=== PATIENT | female | born 1995 | race American Indian/Alaskan Native ===

== ENCOUNTER 2017-02-28 03:02 | Inpatient (IN) | payer MEDICAID ==
[2017-02-28] MEDS ORDERED: Nalbuphine 10 MG/1 ML Vial IM PRN (07:20)
[2017-02-28] MEDS ORDERED: Penicillin G Potassium 5 MILLUNITS in Sodium Chloride 0.9% 100 ML IV ONE (07:20)
[2017-02-28] MEDS ORDERED: Lactated Ringers 500 ML IV ONE (07:20)
[2017-02-28] MEDS ORDERED: Misoprostol 400 MCG (4 X 100 MCG TAB) RECTAL PRN (07:20)
[2017-02-28] MEDS ORDERED: Sodium Chloride 0.9% 10 ML Syringe FLUSH PRN (07:20)
[2017-02-28] MEDS ORDERED: Carboprost Tromethamine 250 MCG/1 ML Amp IM PRN (07:20)
[2017-02-28] MEDS ORDERED: Ondansetron 4 MG/2 ML SDV IV PRN (07:20)
[2017-02-28] MEDS ORDERED: Methylergonovine 0.2 MG/1 ML Amp IM PRN (07:20)
[2017-02-28] MEDS ORDERED: Lidocaine 1% 30 ML SDV INJECT PRN (07:20)
[2017-02-28] MEDS: Lactated Ringers 1,000 ML IV SCH ×2 (08:20→16:13)
--- NOTE | 2017-02-28 09:13 | HP ---
CHIEF COMPLAINT: "I am constantine". HISTORY OF PRESENT ILLNESS: Ms. Wilhelm is a 21-year-old 2 para 1-0-0-1 female at 41-1/7th weeks' gestation by a 39-1/7th weeks' ultrasound done at [place]. She reports to Labor and Delivery with increasing force and frequency of contractions. They started off at a half an hour to 45 minutes apart and now they are closer. She denies any vaginal bleeding or leakage of fluid. No nausea, vomiting, or diarrhea. No fever or chills. No hematochezia, hematemesis, or hematuria. No dysuria, frequency, or urgency with urination. No leg pain, leg edema, severe abdominal or back pain. PAST MEDICAL HISTORY: She denies any history of anemia, asthma, diabetes, cancer, hypertension, heart disease, seizure disorder, thromboembolic disorder, blood transfusions, breast lesions, or asthma. FAMILY HISTORY: Her mother in November of 2016 for end-stage renal disease, positive history of diabetes, coronary artery disease, hypertension, and cancer in her great grandmother. SOCIAL HISTORY: She denies any tobacco use or alcohol use. She states that she has used marijuana, the last time was in November. She did have a positive cannabis on a recent drug screen on 02/20/2017. She lives in [place] with her aunt. The father of the baby is involved, but she has not been able to come to visits except for one visit with Dr. Perea on 02/22/2017 because of getting a ride issues. OBSTETRICAL HISTORY: 08/22/2015, delivery of a viable male infant, weighing 7 pounds 6 ounces via vacuum-assisted vaginal delivery with scores of 4 at 1 minute and 9 at [address] Jomar Garcia. ALLERGIES: No known drug allergies. MEDICATIONS: 1. vitamins. 2. Iron. INDUSTRIAL MAINTENANCE REPAIRER HISTORY: She does have history of left genital labial abscess in the past and positive for chlamydia with her last which was treated. Chlamydia at earlier in the at [place] was negative. PAST SURGICAL HISTORY: None. REVIEW OF SYSTEMS: All pertinent positive and negative review of systems per HPI. All other systems were reviewed and negative. The 10-point review of systems was discussed with the patient, she has no issues. She denies any chest pain, shortness of breath, headaches, blurry vision, or epigastric pain. She does have some discomfort in her abdomen with contractions. LABORATORY DATA: Blood type is A positive. Antibody screen negative. Hepatitis C negative. Rubella immune. Hepatitis B surface antigen negative. HIV nonreactive. GC chlamydia negative. Group B strep was negative. OBJECTIVE: General: A well-developed, well-nourished female, in no acute distress. Vital Signs: Stable. Afebrile. HEENT: PERRLA. Neck: Supple without adenopathy. No thyromegaly. Lungs: Clear to auscultation. No wheezing, rhonchi, or rales noted. Cardiovascular: Regular rate and rhythm without murmurs. Abdomen: Gravid. Nontender. heart tones in the 130s to 140s. Contractions every 45 minutes apart. Back: No CVA tenderness. : Cervix is 1.5 cm dilated, 60% effaced, -2 station, firm, midposition. Vertex presentation. Extremities: No edema, erythema, or tenderness noted. ASSESSMENT: 1. A 21-year-old 2 para 1-0-0-1 female. 2. Early prodrome labor. 3. Minimal care. 4. Dating by a late third trimester ultrasound. 5. Group B Streptococcus negative. 6. Positive for cannabis on urine drug screen. PLAN: 1. Admit for observation. 2. Dr. Quintero will evaluate the patient and decide whether to keep her and induce her versus sending her home and bring her back for induction of labor. 3. All questions answered. [facility] /[id number]
[2017-02-28] MEDS ORDERED: Oxytocin/Normal Saline 30 UNIT/500 ML BAG IV SCH (12:30)
--- NOTE | 2017-02-28 13:34 | PN ---
DATE: 02/28/2017 SUBJECTIVE: The patient continues to have regular contractions reporting they have increased in intensity and remained as frequent as they were before. She is willing to proceed with artificial rupture of membranes for continued progress of her labor and would like an intrathecal when appropriate. OBJECTIVE: Vital Signs: Have remained stable. Pelvic: Cervix is 5 cm dilated, 90% effaced, and the bag of water is intact. Ruptured with amniotomy help without difficulties and clear fluid returned. Station is approximately -2. ASSESSMENT: Unchanged with a 41 and 1/7th weeks gestation based on last menstrual period which was less than 1 week different from her 22-week ultrasound. She is in active labor. Has a history of marijuana abuse. She is group B Strep positive and receiving antibiotics. She also had insufficient care with only 2 care visits as an outpatient, 1 as an inpatient. PLAN: Continue routine course and anticipate vaginal delivery. We will continue to reassess as needed and change the plan as needed. [facility] /[id number]
[2017-02-28] MEDS: Penicillin G Potassium 3 MILLUNITS in Sodium Chloride 0.9% 100 ML IV SCH ×3 (13:50→22:41)
[2017-02-28] MEDS ORDERED: fentaNYL 100 MCG/2 ML SDV ONE (15:39)
--- NOTE | 2017-02-28 16:21 | PCM.SN ---
- Free Text/Narrative Note: Called to provide labor analgesia for this patient via intrathecal. After review of patient history, VS, etc, and consent signed, proceeded. With patient in sitting position, sterile prep/drape. Skin wheal at L3-4 with 1% lidocaine. LP X 1 at L3-4 with 24g pencan spinal needle. Positive, free flowing, clear CSF. No heme, no paresthesia. Then 6mg mpf, hyperbaric spinal marcaine, 20mcg sufenta, 30mcg fentanyl, 0.4ml of preservative free normal saline, plus epi wash given intrathecally. Pt then to supine. Maternal SBP and FHT's remained stable after, and patient reported pain relief with subsequent contractions.
[2017-02-28] MEDS ORDERED: fentaNYL 100 MCG/2 ML SDV ITHECAL ONE (17:03)
[2017-02-28] MEDS ORDERED: Benzocaine/Menthol 20%-0.5% Spray 56 GM Canister TOP PRN (19:35)
[2017-02-28] MEDS ORDERED: Simethicone 80 MG Tab.Chew PO PRN (19:35)
[2017-02-28] MEDS: Acetaminophen 325 MG Tab PO PRN (20:05)
[2017-02-28] MEDS: Docusate Sodium 100 MG Cap PO PRN (20:05)
[2017-02-28] MEDS: Ibuprofen 800 MG Tab PO PRN (20:06)
[2017-03-01] MEDS: Penicillin G Potassium 3 MILLUNITS in Sodium Chloride 0.9% 100 ML IV SCH (02:46)
[2017-03-01] MEDS: Ibuprofen 800 MG Tab PO PRN ×3 (04:36→23:24)
[2017-03-01] MEDS: Acetaminophen 325 MG Tab PO PRN ×2 (04:37→20:27)
--- NOTE | 2017-03-01 07:35 | DEL ---
DATE: 02/28/2017 PREPROCEDURE DIAGNOSES: 1. A 41 and 1/7th weeks gestation based on last menstrual period and found this 22-week ultrasound. 2. 2, para 1-0-0-1. 3. History of marijuana abuse with positive drug screens in November and February. 4. Blood type A positive. Rubella immune. Group B strep positive, treated during labor. 5. History of bacterial vaginosis 1 week ago. 6. Insufficient care. 7. Anemia of with a hemoglobin of 11.3. 8. History of methamphetamine on UDS in October. POSTPROCEDURE DIAGNOSES: 1. A 41 and 1/7th weeks gestation based on last menstrual and found this 22- week ultrasound. 2. 2, para 1-0-0-1. 3. History of marijuana abuse with positive drug screens in November and February. 4. Blood type A positive. Rubella immune. Group B strep positive, treated during labor. 5. History of bacterial vaginosis 1 week ago. 6. Insufficient care. 7. Status post uncomplicated vaginal delivery. 8. History of methamphetamine on UDS in October. 9. Superficial skin tear anterior and posterior with need for one small stitch for hemostasis. BRIEF HISTORY: A 21-year-old with the above-listed diagnoses, presented to the hospital in early stages of labor and she was monitored for several hours and was showing cervical change, admitted to the hospital. Artificial rupture of membranes carried out with return of clear fluid and she was 5 cm dilated. She continued to progress nicely. Intrathecal was provided for pain management and labor slowed and then picked up again and was augmented with 2 milliunits of Pitocin. She then later on went onto complete stage I labor was about 16 hours and she only needed to push for about 20 minutes despite poor quality of pushes before resulting in successful delivery. PROCEDURE IN DETAIL: With the patient in dorsal lithotomy position, she delivered a viable male over intact perineum in the OA position. Infant was delivered and dried. Excessive secretions were audible, so he was placed head and face in a downward position. Bulb suction carried out. He was then placed on mother's abdomen. Delayed cord clamping performed and then three- vessel umbilical cord was doubly clamped and cut. Placenta was then delivered by gentle cord traction and concomitant uterine massage intact after about 4-5 minutes. Uterus was then massaged and blood flow well-controlled. Labia inspected and she had some superficial skin tears, one of which on the labia on the right side. There was a small amount of bleeding that would not stop with just application of pressure, so a single stitch of 4-0 Vicryl placed in figure- of-eight fashion and excellent hemostasis achieved. No additional repair was needed. No local anesthetic was required. The patient tolerated procedure well. ESTIMATED BLOOD LOSS: 300 mL. DISPOSITION: Mother and baby to stay in the room together at this time. [facility] /[id number] MTDD
[2017-03-01] MEDS: Prenatal Multivitamin with Calcium/Folic Acid/Iron Tab PO SCH (08:59)
[2017-03-01] MEDS: Docusate Sodium 100 MG Cap PO PRN ×2 (08:59→20:27)
[2017-03-01] MEDS: Ferrous Sulfate 325 MG Tab PO SCH (08:59)
--- NOTE | 2017-03-01 10:04 | PCM.POSTAN ---
POST ANESTHESIA ASSESSMENT - MENTAL STATUS Mental Status: alert - VITAL SIGNS Pulse Rate: 68 SaO2: 100 Resp Rate: 20 Blood Pressure: 123/67 Temperature: 36.2 C - RESPIRATORY Respiratory Status: respiratory rate WNL - CARDIOVASCULAR CV Status: pulse rate WNL - GASTROINTESTINAL GI Status: no symptoms - POST OP HYDRATION Hydration Status: adequate & stable - OBSERVATIONS Free Text/Narrative:: Pt without c/o. No PDPH, no PONV, no persistant paresthesias, etc. No c/o pain. no post anesthesia complications noted.
--- NOTE | 2017-03-02 07:59 | PN ---
DATE: 03/01/2017 TIME: 12 p.m. SUBJECTIVE: day #1, doing well, ambulating, tolerating regular diet, voiding without difficulties. She has not yet had a bowel movement. Bleeding has been minimal. Bonding well with her child and bottle feeding. 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 Her urine drug screen resulted positive for marijuana on admission. The patient would like to follow up in [place] when the time comes because of transportation reasons, and we would certainly arrange that for her. OBJECTIVE: Vital Signs: Temperature is 97.7; pulse 67; blood pressure 145/76, recheck of 139/69; respiratory rate of 16; and O2 saturation is 98% on room air. HEENT: Unremarkable. Heart: Regular without obvious murmur. Lungs: Clear to auscultation bilaterally. Abdomen: Soft and nontender. Fundus is firm and below the umbilicus. Extremities: Full range of motion. No edema. LABORATORY DATA: Hemoglobin is down to 9.1 from an admission of 11.3 and platelets are stable at 215. ASSESSMENT: 1. 2, now para 2-0-0-2, status post uncomplicated vaginal delivery. 2. History of methamphetamine use this as well as marijuana abuse. 3. Minimal care. 4. Group B Streptococcus positive, treated in labor. PLAN: Anticipate continued normal care and discharge home tomorrow as long as all continues to go well. The patient's questions have been answered. [facility] /[id number]
[2017-03-02 08:08] VITALS: BP 144/70
[2017-03-02] MEDS ORDERED: Diphtheria,Pertussis(Acell),Tetanus Vaccine 0.5 ML SDV IM ONE (08:48)
[2017-03-02] MEDS: Docusate Sodium 100 MG Cap PO PRN (09:42)
[2017-03-02] MEDS: Ferrous Sulfate 325 MG Tab PO SCH (09:42)
[2017-03-02] MEDS: Ibuprofen 800 MG Tab PO PRN (09:42)
[2017-03-02] MEDS: Prenatal Multivitamin with Calcium/Folic Acid/Iron Tab PO SCH (09:42)
--- NOTE | 2017-03-04 00:34 | DISCH ---
ADMISSION DIAGNOSES: 1. A 41 and 7th weeks' gestation based on last menstrual period and within 5 days of her 22-week ultrasound. 2, para 1-0-0-1. 2. THC abuse with positive drug screens in November and February. 3. Blood type A positive, rubella immune, group B Strep positive. 4. Bacterial vaginosis treated 1 week ago. 5. Insufficient care. 6. Anemia of . DISCHARGE DIAGNOSES: 1. A 41 and 7th weeks' gestation based on last menstrual period and within 5 days of her 22-week ultrasound. 2, now para 2-0-0-2. 2. THC abuse with positive drug screens in November and February. 3. Blood type A positive, rubella immune, group B Strep positive. 4. Bacterial vaginosis treated 1 week ago. 5. Insufficient care. 6. Anemia of . 7. Anemia of acute blood. 8. Status post spontaneous vaginal delivery. 9. Repair of non hemostatic skin tear, left labia. BRIEF HISTORY: A 21-year-old female, admitted to the hospital in early stages of labor. She was allowed to progress on her own until she was about 5 cm dilated, and intrathecal provided and artificial rupture of membranes performed. She was then augmented with some Pitocin, since the intrathecal slowed her labor slightly, she progressed very nicely after that. Total stage I about 16 hours, stage II 20 minutes, stage III about 4 minutes. See delivery note for full details. There were no complications or problems with that. HOSPITAL COURSE: Hospital course has been good. She has been ambulating, tolerating regular diet, voiding, not yet had a bowel movement. No symptoms of preeclampsia. No fevers, chills, diarrhea, or constipation. No foul-smelling drainage or discharge. Bleeding has been [id number]. Bonding with her baby has been appropriate. PHYSICAL EXAMINATION: Vital Signs: Discharge condition good. Temperature is 98.5, pulse 72, blood pressure 122/65, respiratory rate of 16, and O2 saturations 98% on room air. Heart: Regular without obvious murmur. Lungs: Clear to auscultation bilaterally. Abdomen: Soft and nontender. Fundus is firm and below the umbilicus. Extremities: No edema, erythema, or tenderness noted. LABORATORY DATA: Admission hemoglobin was 11.3, discharge hemoglobin of 9.1. Urine drug screen was negative on admission. DISPOSITION: Home with family. MEDICATIONS: 1. Ibuprofen 600 mg every 6 hours as needed for pain. 2. Tylenol 650 mg every 6 hours as needed for pain. 3. Iron 325 mg twice daily. 4. Colace 100 mg twice daily. FOLLOWUP: She will need an appointment in 6 weeks for exam and plans to do that in [place] with Joan Kervinchad. INSTRUCTIONS: Routine post vaginal delivery instructions provided including to return if she has any fever, chills, nausea, vomiting, diarrhea, increasing pelvic pain, or other concerns. Her questions were answered. [facility] /[id number] [place]
== END 2017-03-02 17:00 | disposition home or self-care (01) | DRG 775 ==
LOC: DL.OBCHECK 03:02 → UNDOADMOB 07:15 → DL.OB 07:15 → OBSVTOIN 19:09 → DL.OB 19:09
PROVIDERS: ADMIT Obstetrics & Gynecology; ATTEND Obstetrics & Gynecology
PROC: 10E0XZZ Delivery of Products of Conception, External Approach (ICD-10-PCS; principal; 2017-02-28)
PROC: 0UQMXZZ Repair Vulva, External Approach (ICD-10-PCS; 2017-02-28)
PROC: 00HU33Z Insertion of Infusion Device into Spinal Canal, Percutaneous Approach (ICD-10-PCS; 2017-02-28)
PROC: 3E0R3CZ (ICD-10-PCS; 2017-02-28)
DX: O48.0 Post-term pregnancy (principal); O99.324 Drug use complicating childbirth; O99.824 Streptococcus B carrier state complicating childbirth; O70.0 First degree perineal laceration during delivery; Z3A.41 41 weeks gestation of pregnancy; Z37.0 Single live birth
CPT/HCPCS: 01967; 36415; 80305; 85027; 86850; 86900; 86901; 90715; A9270-GY; J2405; J2540; J2590; J3010; J7050; J7120

== ENCOUNTER 2020-02-03 15:06 | Emergency (ER) | payer MEDICAID ==
[2020-02-03] MEDS ORDERED: Cyclobenzaprine 10 MG Tab PO ONE ×2 (15:07→16:15)
[2020-02-03] MEDS ORDERED: Ketorolac 10 MG Tab PO ONE (15:07)
[2020-02-03 15:41] VITALS: BP 115/79; PULSE 94
[2020-02-03] MEDS ORDERED: Ketorolac 30 MG/ML SDV IM ONE (16:15)
[2020-02-03] MEDS ORDERED: Cyclobenzaprine 10 MG Tab ONE (16:20)
[2020-02-03] MEDS ORDERED: Ketorolac 10 MG Tab ONE (16:20)
--- NOTE | 2020-02-03 16:23 | EDM.PDOC ---
Scribed by Clair Irby 02/03/20 3991 for Kwasi Copeland PA ED HPI GENERAL MEDICAL PROBLEM - General Chief Complaint: Back Pain or Injury Stated Complaint: BACK INJURY LUMP ON WRIST Time Seen by Provider: 02/03/20 15:27 Source of Information: Reports: Patient, RN, RN Notes Reviewed History Limitations: Reports: No Limitations - History of Present Illness INITIAL COMMENTS - FREE TEXT/NARRATIVE: Patient is a 24-year-old female who presents with back pain between shoulders and to right lower back. She took Tylenol 3 tablets (500mg). It started at 3 or 3:30 yesterday. 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 The patient reports increased pain since that time. The patient reports she took a Suboxone yesterday before work. The patient reports she is supposed to be at work new. Onset Date: 02/02/20 Duration: Getting Worse Location: Reports: Back Quality: Reports: Ache Severity: Moderate Improves with: Reports: None Worsens with: Reports: None Associated Symptoms: Reports: No Other Symptoms - Related Data Allergies Allergy/AdvReac Type Severity Reaction Status Date / Time No Known Allergies Allergy Verified 06/04/18 23:38 Home Meds: Home Meds Acetaminophen [Tylenol] 650 mg PO Q4H PRN #30 tablet 03/02/17 [Rx] Ferrous Sulfate 325 mg PO BID #60 tablet 03/02/17 [Rx] Ibuprofen [IJD: Ibuprofen] 600 mg PO Q6H PRN #60 tablet 03/02/17 [Rx] Past Medical History - Past Health History Medical/Surgical History: Denies Medical/Surgical History HEENT History: Reports: Impaired Vision Cardiovascular History: Reports: None Respiratory History: Reports: None Gastrointestinal History: Reports: GERD Genitourinary History: Reports: None EXHIBIT CARPENTER History: Reports: Musculoskeletal History: Reports: None Neurological History: Reports: None Psychiatric History: Reports: Depression, Suicidal Ideation Other Psychiatric History: denies this visit, noted cutting alvarado Endocrine/Metabolic History: Reports: None Hematologic History: Reports: Anemia Immunologic History: Reports: None Oncologic (Cancer) History: Reports: None Dermatologic History: Reports: None - Infectious Disease History Infectious Disease History: Reports: None Other Infectious Disease History: denies - Past Surgical History Head Surgeries/Procedures: Reports: None Social & Family History - Family History Family Medical History: Noncontributory HEENT: Reports: None Cardiac: Reports: None Respiratory: Reports: None GI: Reports: None : Reports: None OBGYN: Reports: None Musculoskeletal: Reports: None Neurological: Reports: None Psychiatric: Reports: None Endocrine/Metabolic: Reports: None Hematologic: Reports: None Immunologic: Reports: None Dermatologic: Reports: None Oncologic: Reports: None - Caffeine Use Caffeine Use: Reports: Coffee, Energy Drinks, Soda, Tea ED ROS GENERAL - Review of Systems Review Of Systems: Comprehensive ROS is negative, except as noted in HPI. ED EXAM,LOWER BACK PAIN/INJURY - Physical Exam Exam: See Below Exam Limited By: No Limitations General Appearance: Alert, WD/WN, No Apparent Distress Eye Exam: Bilateral Eye: EOMI, Normal Inspection, PERRL Ears: Normal External Exam, Normal Canal, Hearing Grossly Normal, Normal TMs Nose: Normal Inspection, Normal Mucosa, No Blood Throat/Mouth: Normal Inspection, Normal Lips, Normal Teeth, Normal Gums, Normal Oropharynx, Normal Voice, No Airway Compromise Head: Atraumatic, Normocephalic Neck: Normal Inspection, Supple, Non-Tender, Full Range of Motion Respiratory/Chest: No Respiratory Distress, Lungs Clear, Normal Breath Sounds, No Accessory Muscle Use, Chest Non-Tender Cardiovascular: Normal Peripheral Pulses, Regular Rate, Rhythm, No Edema, No Gallop, No JVD, No Murmur, No Rub GI/Abdominal: Normal Bowel Sounds, Soft, Non-Tender, No Organomegaly, No Distention, No Abnormal Bruit, No Mass (Female) Exam: Deferred Rectal (Female) Exam: Deferred Back Exam: Other (diffuse back pain and bilateral posterior shoulders, left lower back. ) Extremities: Normal Inspection, Normal Range of Motion, Non-Tender, No Pedal Edema, Normal Capillary Refill Neurological: Alert, Normal Mood/Affect, Normal Dorsiflexion, CN II-XII Intact, Normal Plantar Flexion, Normal Gait, Normal Reflexes, No Motor/Sensory Deficits, Oriented x 3 Psychiatric: Normal Affect, Normal Mood Skin Exam: Warm, Dry, Intact, Normal Color, No Rash Lymphatic: No Adenopathy Course - Vital Signs Last Recorded V/S: Last Vital Signs Temp 37.5 C 02/03/20 15:31 Pulse 94 02/03/20 15:31 Resp 18 02/03/20 15:31 BP 115/79 02/03/20 15:31 Pulse Ox 100 02/03/20 15:31 - Orders/Labs/Meds Labs: Laboratory Tests 02/03/20 02/03/20 02/03/20 Range/Units 15:51 15:51 15:51 Urine Color Yellow (YELLOW) Urine Appearance Clear (CLEAR) Urine pH 7.5 (5.0-9.0) Ur Specific [place] 1.025 (1.005-1.030) Urine Protein Negative (NEGATIVE) Urine Glucose (UA) Negative (NEGATIVE) Urine Ketones Negative (NEGATIVE) Urine Occult Blood Negative (NEGATIVE) Urine Nitrite Negative (NEGATIVE) Urine Bilirubin Negative (NEGATIVE) Urine Urobilinogen 0.2 (0.2-1.0) mg/dL Ur Leukocyte Esterase Negative (NEGATIVE) Urine HCG, Qual Negative Urine Opiates Screen Negative (NEGATIVE) Ur Oxycodone Screen Negative (NEGATIVE) Urine Methadone Screen Negative (NEGATIVE) Ur Barbiturates Screen Negative (NEGATIVE) U Tricyclic Antidepress Negative (NEGATIVE) Ur Phencyclidine Scrn Negative (NEGATIVE) Ur Amphetamine Screen Negative (NEGATIVE) U Methamphetamines Scrn Negative (NEGATIVE) Urine MDMA Screen Negative (NEGATIVE) U Benzodiazepines Scrn Negative (NEGATIVE) Urine Cocaine Screen Negative (NEGATIVE) U Marijuana (THC) Screen Positive H (NEGATIVE) Meds: Medications Discontinued Medications Generic Name Dose Route Start Last Admin Trade Name Freq PRN Reason Stop Dose Admin Cyclobenzaprine HCl 10 mg 02/03/20 16:15 Flexeril PO 02/03/20 16:16 ONETIME ONE Ketorolac Tromethamine 30 mg 02/03/20 16:15 Toradol IM 02/03/20 16:16 ONETIME ONE Departure - Departure Time of Disposition: 16:19 Disposition: Home, Self-Care 01 Condition: Fair Clinical Impression: Back strain Qualifiers: Encounter type: initial encounter Qualified Code(s): S39.012A - Strain of muscle, fascia and tendon of lower back, initial encounter - Discharge Information *PRESCRIPTION DRUG MONITORING PROGRAM REVIEWED*: Not Applicable *COPY OF PRESCRIPTION DRUG MONITORING REPORT IN PATIENT AJE: Not Applicable Instructions: Muscle Strain, [id number] Forms: ED Department Discharge Care Plan Goals: The patient was advised of the examination results during the visit. The patient was given an injection of Toradol (10 mg) and an oral dose of Flexeril (10 mg) while in the ED. The patient was discharged with Toradol (10 mg) #1 to take eery 6 hours and Flexeril (10 mg) #1 to take every 6 hours as needed and scripts for Toradol (10 mg) #16 to take 1 by mouth every 6 hours and Flexeril (10 mg) #10 to take 1 by mouth at bedtime as needed. If the patient has any additional symptoms or concerns, the patient should either return to the emergency department or visit her primary care facility. Sepsis Event Note (ED) - Focused Exam Vital Signs: Vital Signs Temp Pulse Resp BP Pulse Ox 02/03/20 15:31 37.5 C 94 18 115/79 100 I have read and agree with the documentation that has been completed regarding this visit. By signing this record, I attest that the documentation was completed in my physical presence and is an accurate record of the encounter.
== END 2020-02-03 16:30 | disposition home or self-care (01) ==
LOC: DL.ED 15:06
DX: S39.012A Strain of muscle, fascia and tendon of lower back, initial encounter (principal); D64.9 Anemia, unspecified; Z79.899 Other long term (current) drug therapy; X50.0XXA Overexertion from strenuous movement or load, initial encounter; Y92.89 Other specified places as the place of occurrence of the external cause; Y99.0 Civilian activity done for income or pay
CPT/HCPCS: 80305; 81003; 81025; 96372; 99283; A9270; J1885

== ENCOUNTER 2020-05-24 18:50 | Emergency (ER) | payer MEDICAID ==
[2020-05-24 18:59] VITALS: BP 131/98; PULSE 110
[2020-05-24] MEDS ORDERED: Cephalexin 500 MG Cap PO ONE (19:20)
[2020-05-24] MEDS ORDERED: Sulfamethoxazole/Trimethoprim 800-160 MG Tab PO ONE (19:20)
--- NOTE | 2020-05-24 19:20 | EDM.PDOC ---
ED HPI GENERAL MEDICAL PROBLEM - General Chief Complaint: Skin Complaint Stated Complaint: RIGHT ANKLE, 2 BUMPS POSSIBLE INFECTION Time Seen by Provider: 05/24/20 19:00 Source of Information: Reports: Patient History Limitations: Reports: No Limitations - History of Present Illness INITIAL COMMENTS - FREE TEXT/NARRATIVE: c/o pain and redness to right lower leg, started with 2 sores last night, worse this afternoon. Hx skin infections in past. Denies hx IVDU. Denies fever or chills. Right Lower Leg Pain Score (Numeric/FACES): 6 - Related Data Allergies Allergy/AdvReac Type Severity Reaction Status Date / Time No Known Allergies Allergy Verified 05/24/20 19:06 Home Meds: Home Meds . 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 ATTENDANT History: Reports: Musculoskeletal History: Reports: None Neurological History: Reports: None Psychiatric History: Reports: Depression, Suicidal Ideation Other Psychiatric History: denies this visit, noted cutting alvarado Endocrine/Metabolic History: Reports: None Hematologic History: Reports: Anemia Immunologic History: Reports: None Oncologic (Cancer) History: Reports: None Dermatologic History: Reports: None - Infectious Disease History Infectious Disease History: Reports: None Other Infectious Disease History: denies - Past Surgical History Head Surgeries/Procedures: Reports: None Social & Family History - Family History Family Medical History: Noncontributory HEENT: Reports: None Cardiac: Reports: None Respiratory: Reports: None GI: Reports: None : Reports: None OBGYN: Reports: None Musculoskeletal: Reports: None Neurological: Reports: None Psychiatric: Reports: None Endocrine/Metabolic: Reports: None Hematologic: Reports: None Immunologic: Reports: None Dermatologic: Reports: None Oncologic: Reports: None - Tobacco Use Smoking Status *Q: Never Smoker - Caffeine Use Caffeine Use: Reports: None - Recreational Drug Use Recreational Drug Use: Yes Recreational Drug Type: Reports: Marijuana/Hashish ED ROS GENERAL - Review of Systems Review Of Systems: Comprehensive ROS is negative, except as noted in HPI. ED EXAM, SKIN/RASH Exam: See Below Exam Limited By: No Limitations General Appearance: Alert, No Apparent Distress Eye Exam: Bilateral Eye: EOMI Ears: Normal External Exam Nose: Normal Inspection Throat/Mouth: Normal Inspection Head: Atraumatic, Normocephalic Neck: Normal Inspection Respiratory/Chest: No Respiratory Distress, Lungs Clear, Normal Breath Sounds Cardiovascular: Regular Rate, Rhythm, No Edema, No Murmur GI/Abdominal: Soft Extremities: Increased Warmth, Redness (right lower anterior lower leg) Neurological: Alert, Oriented Location, Skin: Lower Extremity, Right Characteristics: Erythematous Associated features: Tenderness, Crusting Course - Vital Signs Last Recorded V/S: Last Vital Signs Temp 99.4 F 05/24/20 18:55 Pulse 110 H 05/24/20 18:55 Resp 16 05/24/20 18:55 BP 131/98 H 05/24/20 18:55 Pulse Ox 100 05/24/20 18:55 - Orders/Labs/Meds Orders: Active Orders 24 hr Category Date Time Status CULTURE BLOOD [BC] Stat Lab 05/24/20 19:20 Received Labs: Laboratory Tests 05/24/20 05/24/20 Range/Units 19:20 19:20 WBC 9.6 (5.0-10.0) 10^3/uL RBC 4.34 (4.2-5.4) 10^6/uL Hgb 12.3 D (12.0-16.0) g/dL Hct 37.1 (37.0-47.0) % MCV 85.5 (80-100) fL MCH 28.3 (27.0-34.0) pg MCHC 33.2 (33.0-35.0) g/dL Plt Count 238 (150-450) 10^3/uL Neut % (Auto) 75.0 (42.2-75.2) % Lymph % (Auto) 18.0 L (20.5-50.1) % Brooks % (Auto) 6.3 (2-8) % Eos % (Auto) 0.5 L (1.0-3.0) % Baso % (Auto) 0.2 (0.0-1.0) % Sodium 136 (136-145) mmol/L Potassium 3.9 (3.5-5.1) mmol/L Chloride 99 (98-107) mmol/L Carbon Dioxide 28 (21-32) mmol/L Anion Gap 12.9 (7-13) mEq/L BUN 12 (7-18) mg/dL Creatinine 0.63 (0.55-1.02) mg/dL Est Cr Clr Drug Dosing 130.01 mL/min Estimated GFR (MDRD) > 60 BUN/Creatinine Ratio 19.0 (No establ ref range) Glucose 92 (74-99) mg/dL Calcium 8.5 (8.5-10.1) mg/dL Total Bilirubin 0.2 (0.2-1.0) mg/dL AST 9 L (15-37) U/L ALT 23 (14-59) U/L Alkaline Phosphatase 72 (46-116) U/L Total Protein 7.6 (6.4-8.2) g/dL Albumin 4.0 (3.4-5.0) g/dL Globulin 3.6 Albumin/Globulin Ratio 1.1 Meds: Medications Discontinued Medications Generic Name Dose Route Start Last Admin Trade Name Freq PRN Reason Stop Dose Admin Cephalexin 500 mg 05/24/20 19:20 05/24/20 19:53 Keflex PO 05/24/20 19:21 500 mg ONETIME ONE Administration Ibuprofen 600 mg 05/24/20 19:21 05/24/20 19:53 Motrin PO 05/24/20 19:22 600 mg ONETIME ONE Administration Trimethoprim/Sulfamethoxazole 1 tab 05/24/20 19:20 05/24/20 19:54 Septra Ds PO 05/24/20 19:21 1 tab ONETIME ONE Administration Departure - Departure Time of Disposition: 19:51 Disposition: Home, Self-Care 01 Condition: Good Clinical Impression: Cellulitis Qualifiers: Site of cellulitis: extremity Site of cellulitis of extremity: lower extremity Laterality: right Qualified Code(s): L03.115 - Cellulitis of right lower limb - Discharge Information *PRESCRIPTION DRUG MONITORING PROGRAM REVIEWED*: No *COPY OF PRESCRIPTION DRUG MONITORING REPORT IN PATIENT JAE: No Instructions: Cellulitis, Adult Forms: ED Department Discharge Additional Instructions: ED HPI GENERAL MEDICAL PROBLEM - General Chief Complaint: Skin Complaint Stated Complaint: RIGHT ANKLE, 2 BUMPS POSSIBLE INFECTION Source of Information: Reports: Patient History Limitations: Reports: No Limitations - History of Present Illness INITIAL COMMENTS - FREE TEXT/NARRATIVE: c/o pain and redness to right lower leg, started with 2 sores last night, worse this afternoon. Hx skin infections in past. Denies hx IVDU. Denies fever or chills. Right Lower Leg Pain Score (Numeric/FACES): 6 - Related Data Allergies Allergy/AdvReac Type Severity Reaction Status Date / Time No Known Allergies Allergy Verified 05/24/20 19:06 Home Meds: Home Meds . 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 ATTENDANT History: Reports: Musculoskeletal History: Reports: None Neurological History: Reports: None Psychiatric History: Reports: Depression, Suicidal Ideation Other Psychiatric History: denies this visit, noted cutting alvarado Endocrine/Metabolic History: Reports: None Hematologic History: Reports: Anemia Immunologic History: Reports: None Oncologic (Cancer) History: Reports: None Dermatologic History: Reports: None - Infectious Disease History Infectious Disease History: Reports: None Other Infectious Disease History: denies - Past Surgical History Head Surgeries/Procedures: Reports: None Social & Family History - Family History Family Medical History: Noncontributory HEENT: Reports: None Cardiac: Reports: None Respiratory: Reports: None GI: Reports: None : Reports: None OBGYN: Reports: None Musculoskeletal: Reports: None Neurological: Reports: None Psychiatric: Reports: None Endocrine/Metabolic: Reports: None Hematologic: Reports: None Immunologic: Reports: None Dermatologic: Reports: None Oncologic: Reports: None - Tobacco Use Smoking Status *Q: Never Smoker - Caffeine Use Caffeine Use: Reports: None - Recreational Drug Use Recreational Drug Use: Yes Recreational Drug Type: Reports: Marijuana/Hashish ED ROS GENERAL - Review of Systems Review Of Systems: Comprehensive ROS is negative, except as noted in HPI. ED EXAM, SKIN/RASH Exam: See Below Exam Limited By: No Limitations General Appearance: Alert, No Apparent Distress Eye Exam: Bilateral Eye: EOMI Ears: Normal External Exam Nose: Normal Inspection Throat/Mouth: Normal Inspection Head: Atraumatic, Normocephalic Neck: Normal Inspection Respiratory/Chest: No Respiratory Distress, Lungs Clear, Normal Breath Sounds Cardiovascular: Regular Rate, Rhythm, No Edema, No Murmur GI/Abdominal: Soft Extremities: Increased Warmth, Redness (right lower anterior lower leg) Neurological: Alert, Oriented Location, Skin: Lower Extremity, Right Characteristics: Erythematous Associated features: Tenderness, Crusting Course - Vital Signs Last Recorded V/S: Last Vital Signs Temp 99.4 F 05/24/20 18:55 Pulse 110 H 05/24/20 18:55 Resp 16 05/24/20 18:55 BP 131/98 H 05/24/20 18:55 Pulse Ox 100 05/24/20 18:55 - Orders/Labs/Meds Orders: Active Orders 24 hr Category Date Time Status CULTURE BLOOD [BC] Stat Lab 05/24/20 19:20 Received Labs: Laboratory Tests 05/24/20 05/24/20 Range/Units 19:20 19:20 WBC 9.6 (5.0-10.0) 10^3/uL RBC 4.34 (4.2-5.4) 10^6/uL Hgb 12.3 D (12.0-16.0) g/dL Hct 37.1 (37.0-47.0) % MCV 85.5 (80-100) fL MCH 28.3 (27.0-34.0) pg MCHC 33.2 (33.0-35.0) g/dL Plt Count 238 (150-450) 10^3/uL Neut % (Auto) 75.0 (42.2-75.2) % Lymph % (Auto) 18.0 L (20.5-50.1) % Brooks % (Auto) 6.3 (2-8) % Eos % (Auto) 0.5 L (1.0-3.0) % Baso % (Auto) 0.2 (0.0-1.0) % Sodium 136 (136-145) mmol/L Potassium 3.9 (3.5-5.1) mmol/L Chloride 99 (98-107) mmol/L Carbon Dioxide 28 (21-32) mmol/L Anion Gap 12.9 (7-13) mEq/L BUN 12 (7-18) mg/dL Creatinine 0.63 (0.55-1.02) mg/dL Est Cr Clr Drug Dosing 130.01 mL/min Estimated GFR (MDRD) > 60 BUN/Creatinine Ratio 19.0 (No establ ref range) Glucose 92 (74-99) mg/dL Calcium 8.5 (8.5-10.1) mg/dL Total Bilirubin 0.2 (0.2-1.0) mg/dL AST 9 L (15-37) U/L ALT 23 (14-59) U/L Alkaline Phosphatase 72 (46-116) U/L Total Protein 7.6 (6.4-8.2) g/dL Albumin 4.0 (3.4-5.0) g/dL Globulin 3.6 Albumin/Globulin Ratio 1.1 Meds: Medications Discontinued Medications Generic Name Dose Route Start Last Admin Trade Name Freq PRN Reason Stop Dose Admin Cephalexin 500 mg 05/24/20 19:20 Keflex PO 05/24/20 19:21 ONETIME ONE Ibuprofen 600 mg 05/24/20 19:21 Motrin PO 05/24/20 19:22 ONETIME ONE Trimethoprim/Sulfamethoxazole 1 tab 05/24/20 19:20 Septra Ds PO 05/24/20 19:21 ONETIME ONE Departure - Departure Time of Disposition: 19:51 Disposition: Home, Self-Care 01 Condition: Good Clinical Impression: Cellulitis Qualifiers: Site of cellulitis: extremity Site of cellulitis of extremity: lower extremity Laterality: right Qualified Code(s): L03.115 - Cellulitis of right lower limb - Discharge Information *PRESCRIPTION DRUG MONITORING PROGRAM REVIEWED*: No *COPY OF PRESCRIPTION DRUG MONITORING REPORT IN PATIENT JAE: No Instructions: Cellulitis, Adult Forms: ED Department Discharge Additional Instructions: warm pack to area monitor follow up if increased redness fever/ chills and increased swelling alternate tylenol 650mg and ibuprofen 600mg every 4 hours as needed for discomfort keflex 500mg one three times daily for one week bactrim DS one twice daily for one week clinic recheck next week Sepsis Event Note (ED) - Evaluation Sepsis Screening Result: No Definite Risk - Focused Exam Vital Signs: Vital Signs Temp Pulse Resp BP Pulse Ox 05/24/20 18:55 99.4 F 110 H 16 131/98 H 100 - My Orders Last 24 Hours: My Active Orders 05/24/20 19:20 CULTURE BLOOD [BC] Stat - Assessment/Plan Last 24 Hours: My Active Orders 05/24/20 19:20 CULTURE BLOOD [BC] Stat ED HPI GENERAL MEDICAL PROBLEM - General Chief Complaint: Skin Complaint Stated Complaint: RIGHT ANKLE, 2 BUMPS POSSIBLE INFECTION Source of Information: Reports: Patient History Limitations: Reports: No Limitations - History of Present Illness INITIAL COMMENTS - FREE TEXT/NARRATIVE: c/o pain and redness to right lower leg, started with 2 sores last night, worse this afternoon. Hx skin infections in past. Denies hx IVDU. Denies fever or chills. Right Lower Leg Pain Score (Numeric/FACES): 6 - Related Data Allergies Allergy/AdvReac Type Severity Reaction Status Date / Time No Known Allergies Allergy Verified 05/24/20 19:06 Home Meds: Home Meds . 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 ATTENDANT History: Reports: Musculoskeletal History: Reports: None Neurological History: Reports: None Psychiatric History: Reports: Depression, Suicidal Ideation Other Psychiatric History: denies this visit, noted cutting alvarado Endocrine/Metabolic History: Reports: None Hematologic History: Reports: Anemia Immunologic History: Reports: None Oncologic (Cancer) History: Reports: None Dermatologic History: Reports: None - Infectious Disease History Infectious Disease History: Reports: None Other Infectious Disease History: denies - Past Surgical History Head Surgeries/Procedures: Reports: None Social & Family History - Family History Family Medical History: Noncontributory HEENT: Reports: None Cardiac: Reports: None Respiratory: Reports: None GI: Reports: None : Reports: None OBGYN: Reports: None Musculoskeletal: Reports: None Neurological: Reports: None Psychiatric: Reports: None Endocrine/Metabolic: Reports: None Hematologic: Reports: None Immunologic: Reports: None Dermatologic: Reports: None Oncologic: Reports: None - Tobacco Use Smoking Status *Q: Never Smoker - Caffeine Use Caffeine Use: Reports: None - Recreational Drug Use Recreational Drug Use: Yes Recreational Drug Type: Reports: Marijuana/Hashish ED ROS GENERAL - Review of Systems Review Of Systems: Comprehensive ROS is negative, except as noted in HPI. ED EXAM, SKIN/RASH Exam: See Below Exam Limited By: No Limitations General Appearance: Alert, No Apparent Distress Eye Exam: Bilateral Eye: EOMI Ears: Normal External Exam Nose: Normal Inspection Throat/Mouth: Normal Inspection Head: Atraumatic, Normocephalic Neck: Normal Inspection Respiratory/Chest: No Respiratory Distress, Lungs Clear, Normal Breath Sounds Cardiovascular: Regular Rate, Rhythm, No Edema, No Murmur GI/Abdominal: Soft Extremities: Increased Warmth, Redness (right lower anterior lower leg) Neurological: Alert, Oriented Location, Skin: Lower Extremity, Right Characteristics: Erythematous Associated features: Tenderness, Crusting Course - Vital Signs Last Recorded V/S: Last Vital Signs Temp 99.4 F 05/24/20 18:55 Pulse 110 H 05/24/20 18:55 Resp 16 05/24/20 18:55 BP 131/98 H 05/24/20 18:55 Pulse Ox 100 05/24/20 18:55 - Orders/Labs/Meds Orders: Active Orders 24 hr Category Date Time Status CULTURE BLOOD [BC] Stat Lab 05/24/20 19:20 Received Labs: Laboratory Tests 05/24/20 05/24/20 Range/Units 19:20 19:20 WBC 9.6 (5.0-10.0) 10^3/uL RBC 4.34 (4.2-5.4) 10^6/uL Hgb 12.3 D (12.0-16.0) g/dL Hct 37.1 (37.0-47.0) % MCV 85.5 (80-100) fL MCH 28.3 (27.0-34.0) pg MCHC 33.2 (33.0-35.0) g/dL Plt Count 238 (150-450) 10^3/uL Neut % (Auto) 75.0 (42.2-75.2) % Lymph % (Auto) 18.0 L (20.5-50.1) % Brooks % (Auto) 6.3 (2-8) % Eos % (Auto) 0.5 L (1.0-3.0) % Baso % (Auto) 0.2 (0.0-1.0) % Sodium 136 (136-145) mmol/L Potassium 3.9 (3.5-5.1) mmol/L Chloride 99 (98-107) mmol/L Carbon Dioxide 28 (21-32) mmol/L Anion Gap 12.9 (7-13) mEq/L BUN 12 (7-18) mg/dL Creatinine 0.63 (0.55-1.02) mg/dL Est Cr Clr Drug Dosing 130.01 mL/min Estimated GFR (MDRD) > 60 BUN/Creatinine Ratio 19.0 (No establ ref range) Glucose 92 (74-99) mg/dL Calcium 8.5 (8.5-10.1) mg/dL Total Bilirubin 0.2 (0.2-1.0) mg/dL AST 9 L (15-37) U/L ALT 23 (14-59) U/L Alkaline Phosphatase 72 (46-116) U/L Total Protein 7.6 (6.4-8.2) g/dL Albumin 4.0 (3.4-5.0) g/dL Globulin 3.6 Albumin/Globulin Ratio 1.1 Meds: Medications Discontinued Medications Generic Name Dose Route Start Last Admin Trade Name Freq PRN Reason Stop Dose Admin Cephalexin 500 mg 05/24/20 19:20 Keflex PO 05/24/20 19:21 ONETIME ONE Ibuprofen 600 mg 05/24/20 19:21 Motrin PO 05/24/20 19:22 ONETIME ONE Trimethoprim/Sulfamethoxazole 1 tab 05/24/20 19:20 Septra Ds PO 05/24/20 19:21 ONETIME ONE Departure - Departure Time of Disposition: 19:51 Disposition: Home, Self-Care 01 Condition: Good Clinical Impression: Cellulitis Qualifiers: Site of cellulitis: extremity Site of cellulitis of extremity: lower extremity Laterality: right Qualified Code(s): L03.115 - Cellulitis of right lower limb - Discharge Information *PRESCRIPTION DRUG MONITORING PROGRAM REVIEWED*: No *COPY OF PRESCRIPTION DRUG MONITORING REPORT IN PATIENT JAE: No Instructions: Cellulitis, Adult Forms: ED Department Discharge Additional Instructions: warm pack to area monitor follow up if increased redness fever/ chills and increased swelling alternate tylenol 650mg and ibuprofen 600mg every 4 hours as needed for discomfort keflex 500mg one three times daily for one week bactrim DS one twice daily for one week clinic recheck next week Sepsis Event Note (ED) - Evaluation Sepsis Screening Result: No Definite Risk - Focused Exam Vital Signs: Vital Signs Temp Pulse Resp BP Pulse Ox 05/24/20 18:55 99.4 F 110 H 16 131/98 H 100 - My Orders Last 24 Hours: My Active Orders 05/24/20 19:20 CULTURE BLOOD [BC] Stat - Assessment/Plan Last 24 Hours: My Active Orders 05/24/20 19:20 CULTURE BLOOD [BC] Stat ED HPI GENERAL MEDICAL PROBLEM - General Chief Complaint: Skin Complaint Stated Complaint: RIGHT ANKLE, 2 BUMPS POSSIBLE INFECTION Source of Information: Reports: Patient History Limitations: Reports: No Limitations - History of Present Illness INITIAL COMMENTS - FREE TEXT/NARRATIVE: c/o pain and redness to right lower leg, started with 2 sores last night, worse this afternoon. Hx skin infections in past. Denies hx IVDU. Denies fever or chills. Right Lower Leg Pain Score (Numeric/FACES): 6 - Related Data Allergies Allergy/AdvReac Type Severity Reaction Status Date / Time No Known Allergies Allergy Verified 05/24/20 19:06 Home Meds: Home Meds . 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 ATTENDANT History: Reports: Musculoskeletal History: Reports: None Neurological History: Reports: None Psychiatric History: Reports: Depression, Suicidal Ideation Other Psychiatric History: denies this visit, noted cutting alvarado Endocrine/Metabolic History: Reports: None Hematologic History: Reports: Anemia Immunologic History: Reports: None Oncologic (Cancer) History: Reports: None Dermatologic History: Reports: None - Infectious Disease History Infectious Disease History: Reports: None Other Infectious Disease History: denies - Past Surgical History Head Surgeries/Procedures: Reports: None Social & Family History - Family History Family Medical History: Noncontributory HEENT: Reports: None Cardiac: Reports: None Respiratory: Reports: None GI: Reports: None : Reports: None OBGYN: Reports: None Musculoskeletal: Reports: None Neurological: Reports: None Psychiatric: Reports: None Endocrine/Metabolic: Reports: None Hematologic: Reports: None Immunologic: Reports: None Dermatologic: Reports: None Oncologic: Reports: None - Tobacco Use Smoking Status *Q: Never Smoker - Caffeine Use Caffeine Use: Reports: None - Recreational Drug Use Recreational Drug Use: Yes Recreational Drug Type: Reports: Marijuana/Hashish ED ROS GENERAL - Review of Systems Review Of Systems: Comprehensive ROS is negative, except as noted in HPI. ED EXAM, SKIN/RASH Exam: See Below Exam Limited By: No Limitations General Appearance: Alert, No Apparent Distress Eye Exam: Bilateral Eye: EOMI Ears: Normal External Exam Nose: Normal Inspection Throat/Mouth: Normal Inspection Head: Atraumatic, Normocephalic Neck: Normal Inspection Respiratory/Chest: No Respiratory Distress, Lungs Clear, Normal Breath Sounds Cardiovascular: Regular Rate, Rhythm, No Edema, No Murmur GI/Abdominal: Soft Extremities: Increased Warmth, Redness (right lower anterior lower leg) Neurological: Alert, Oriented Location, Skin: Lower Extremity, Right Characteristics: Erythematous Associated features: Tenderness, Crusting Course - Vital Signs Last Recorded V/S: Last Vital Signs Temp 99.4 F 05/24/20 18:55 Pulse 110 H 05/24/20 18:55 Resp 16 05/24/20 18:55 BP 131/98 H 05/24/20 18:55 Pulse Ox 100 05/24/20 18:55 - Orders/Labs/Meds Orders: Active Orders 24 hr Category Date Time Status CULTURE BLOOD [BC] Stat Lab 05/24/20 19:20 Received Labs: Laboratory Tests 05/24/20 05/24/20 Range/Units 19:20 19:20 WBC 9.6 (5.0-10.0) 10^3/uL RBC 4.34 (4.2-5.4) 10^6/uL Hgb 12.3 D (12.0-16.0) g/dL Hct 37.1 (37.0-47.0) % MCV 85.5 (80-100) fL MCH 28.3 (27.0-34.0) pg MCHC 33.2 (33.0-35.0) g/dL Plt Count 238 (150-450) 10^3/uL Neut % (Auto) 75.0 (42.2-75.2) % Lymph % (Auto) 18.0 L (20.5-50.1) % Brooks % (Auto) 6.3 (2-8) % Eos % (Auto) 0.5 L (1.0-3.0) % Baso % (Auto) 0.2 (0.0-1.0) % Sodium 136 (136-145) mmol/L Potassium 3.9 (3.5-5.1) mmol/L Chloride 99 (98-107) mmol/L Carbon Dioxide 28 (21-32) mmol/L Anion Gap 12.9 (7-13) mEq/L BUN 12 (7-18) mg/dL Creatinine 0.63 (0.55-1.02) mg/dL Est Cr Clr Drug Dosing 130.01 mL/min Estimated GFR (MDRD) > 60 BUN/Creatinine Ratio 19.0 (No establ ref range) Glucose 92 (74-99) mg/dL Calcium 8.5 (8.5-10.1) mg/dL Total Bilirubin 0.2 (0.2-1.0) mg/dL AST 9 L (15-37) U/L ALT 23 (14-59) U/L Alkaline Phosphatase 72 (46-116) U/L Total Protein 7.6 (6.4-8.2) g/dL Albumin 4.0 (3.4-5.0) g/dL Globulin 3.6 Albumin/Globulin Ratio 1.1 Meds: Medications Discontinued Medications Generic Name Dose Route Start Last Admin Trade Name Corwinq PRN Reason Stop Dose Admin Cephalexin 500 mg 05/24/20 19:20 Keflex PO 05/24/20 19:21 ONETIME ONE Ibuprofen 600 mg 05/24/20 19:21 Motrin PO 05/24/20 19:22 ONETIME ONE Trimethoprim/Sulfamethoxazole 1 tab 05/24/20 19:20 Septra Ds PO 05/24/20 19:21 ONETIME ONE Departure - Departure Time of Disposition: 19:51 Disposition: Home, Self-Care 01 Condition: Good Clinical Impression: Cellulitis Qualifiers: Site of cellulitis: extremity Site of cellulitis of extremity: lower extremity Laterality: right Qualified Code(s): L03.115 - Cellulitis of right lower limb - Discharge Information *PRESCRIPTION DRUG MONITORING PROGRAM REVIEWED*: No *COPY OF PRESCRIPTION DRUG MONITORING REPORT IN PATIENT JAE: No Instructions: Cellulitis, Adult Forms: ED Department Discharge Additional Instructions: warm pack to area monitor follow up if increased redness fever/ chills and increased swelling alternate tylenol 650mg and ibuprofen 600mg every 4 hours as needed for discomfort keflex 500mg one three times daily for one week bactrim DS one twice daily for one week clinic recheck next week Sepsis Event Note (ED) - Evaluation Sepsis Screening Result: No Definite Risk - Focused Exam Vital Signs: Vital Signs Temp Pulse Resp BP Pulse Ox 05/24/20 18:55 99.4 F 110 H 16 131/98 H 100 - My Orders Last 24 Hours: My Active Orders 05/24/20 19:20 CULTURE BLOOD [BC] Stat - Assessment/Plan Last 24 Hours: My Active Orders 05/24/20 19:20 CULTURE BLOOD [BC] Stat warm pack to area monitor follow up if increased redness fever/ chills and increased swelling alternate tylenol 650mg and ibuprofen 600mg every 4 hours as needed for discomfort keflex 500mg one three times daily for one week bactrim DS one twice daily for one week clinic recheck next week Sepsis Event Note (ED) - Evaluation Sepsis Screening Result: No Definite Risk - Focused Exam Vital Signs: Vital Signs Temp Pulse Resp BP Pulse Ox 05/24/20 18:55 99.4 F 110 H 16 131/98 H 100 - My Orders Last 24 Hours: My Active Orders 05/24/20 19:20 CULTURE BLOOD [BC] Stat - Assessment/Plan Last 24 Hours: My Active Orders 05/24/20 19:20 CULTURE BLOOD [BC] Stat
[2020-05-24] MEDS ORDERED: Ibuprofen 600 MG Tab PO ONE (19:21)
[2020-05-24 19:48] LABS: ANION GAP 12.9 mEq/L (7-13); CHLORIDE,CL 99 mmol/L (98-107); SODIUM,NA 136 mmol/L (136-145)
== END 2020-05-24 20:00 | disposition home or self-care (01) ==
LOC: DL.ED 18:50
DX: L03.115 Cellulitis of right lower limb (principal)
CPT/HCPCS: 36415; 80053; 85025; 87040; 99283; A9270

== ENCOUNTER 2020-06-04 19:24 | Emergency (ER) | payer MEDICAID ==
[2020-06-04 19:41] VITALS: BP 130/84; PULSE 88
[2020-06-04] MEDS ORDERED: Ondansetron 4 MG/2 ML SDV ONE (19:59)
[2020-06-04] MEDS ORDERED: Ondansetron 4 MG/2 ML SDV IVPUSH ONE (19:59)
[2020-06-04] MEDS ORDERED: Acetaminophen 325 MG Tab PO ONE (19:59)
[2020-06-04] MEDS ORDERED: Sodium Chloride 0.9% 1,000 ML ONE (19:59)
[2020-06-04] MEDS ORDERED: Sodium Chloride 0.9% 1,000 ML IV ONE (19:59)
[2020-06-04] MEDS ORDERED: Acetaminophen 325 MG Tab ONE (19:59)
--- NOTE | 2020-06-04 20:10 | EDM.PDOC ---
ED HPI GENERAL MEDICAL PROBLEM - General Chief Complaint: Gastrointestinal Problem Stated Complaint: FLU SYMPTOMS Time Seen by Provider: 06/04/20 19:40 Source of Information: Reports: Patient History Limitations: Reports: No Limitations - History of Present Illness INITIAL COMMENTS - FREE TEXT/NARRATIVE: ED with c/o 3 day headache, fever and chills today, body aches, cough non productive this am emesis x 1 and diarrhea x 3. COVID + 8/6. Recent cellulitis right lower leg, completed antibiotic, still some redness and drainage. - Related Data Allergies Allergy/AdvReac Type Severity Reaction Status Date / Time No Known Allergies Allergy Verified 05/24/20 19:06 Home Meds: Home Meds . 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: Musculoskeletal History: Reports: None Neurological History: Reports: None Psychiatric History: Reports: Depression, Suicidal Ideation Other Psychiatric History: denies this visit, noted cutting alvarado Endocrine/Metabolic History: Reports: None Hematologic History: Reports: Anemia Immunologic History: Reports: None Oncologic (Cancer) History: Reports: None Dermatologic History: Reports: Cellulitis - Infectious Disease History Infectious Disease History: Reports: Other (See Below) Other Infectious Disease History: covid 03/19/20 - Past Surgical History Head Surgeries/Procedures: Reports: None Social & Family History - Family History Family Medical History: Noncontributory HEENT: Reports: None Cardiac: Reports: None Respiratory: Reports: None GI: Reports: None : Reports: None OBGYN: Reports: None Musculoskeletal: Reports: None Neurological: Reports: None Psychiatric: Reports: None Endocrine/Metabolic: Reports: None Hematologic: Reports: None Immunologic: Reports: None Dermatologic: Reports: None Oncologic: Reports: None - Tobacco Use Tobacco Use Status *Q: Never Tobacco User Second Hand Smoke Exposure: No - Caffeine Use Caffeine Use: Reports: Energy Drinks, Soda - Recreational Drug Use Recreational Drug Use: Yes Recreational Drug Type: Reports: Marijuana/Hashish Recreational Drug Use Frequency: Daily ED ROS GENERAL - Review of Systems Review Of Systems: Comprehensive ROS is negative, except as noted in HPI. ED EXAM, GI/ABD - Physical Exam Exam: See Below Exam Limited By: No Limitations General Appearance: Alert, Mild Distress Eyes: Bilateral: EOMI Ears: Normal External Exam Nose: Normal Inspection Throat/Mouth: Normal Inspection Head: Atraumatic, Normocephalic Neck: Normal Inspection, Full Range of Motion Respiratory/Chest: No Respiratory Distress, Lungs Clear, Normal Breath Sounds Cardiovascular: Normal Peripheral Pulses, Regular Rate, Rhythm GI/Abdominal Exam: Normal Bowel Sounds, Soft, Non-Tender Back Exam: Normal Inspection, Full Range of Motion Extremities: Normal Range of Motion Neurological: Alert, Oriented Psychiatric: Normal Affect, Normal Mood Skin Exam: Warm, Dry, Wound/Incision (2 lesions right lower kinney, upper 2cm errythematous circular lesion with punctate center. lower 1cm slight pink dry. closed.) Course - Vital Signs Last Recorded V/S: Last Vital Signs Temp 98 F 06/04/20 19:35 Pulse 88 06/04/20 19:35 Resp 18 06/04/20 19:35 BP 130/84 06/04/20 19:35 Pulse Ox 100 06/04/20 19:35 - Orders/Labs/Meds Orders: Active Orders 24 hr Category Date Time Status CULTURE WOUND [RM] Stat Lab 06/04/20 19:42 Received Isolation [COMM] Routine Oth 06/04/20 20:02 Active Labs: Laboratory Tests 06/04/20 06/04/20 06/04/20 Range/Units 19:42 19:54 19:54 WBC 6.3 (5.0-10.0) 10^3/uL RBC 4.48 (4.2-5.4) 10^6/uL Hgb 12.7 (12.0-16.0) g/dL Hct 38.9 (37.0-47.0) % MCV 86.8 (80-100) fL MCH 28.3 (27.0-34.0) pg MCHC 32.6 L (33.0-35.0) g/dL Plt Count 327 D (150-450) 10^3/uL Neut % (Auto) 47.8 (42.2-75.2) % Lymph % (Auto) 44.7 (20.5-50.1) % Stanton % (Auto) 6.3 (2-8) % Eos % (Auto) 1.0 (1.0-3.0) % Baso % (Auto) 0.2 (0.0-1.0) % Sodium 137 (136-145) mmol/L Potassium 4.0 (3.5-5.1) mmol/L Chloride 99 (98-107) mmol/L Carbon Dioxide 28 (21-32) mmol/L Anion Gap 14.0 H (7-13) mEq/L BUN 9 (7-18) mg/dL Creatinine 0.63 (0.55-1.02) mg/dL Est Cr Clr Drug Dosing 124.97 mL/min Estimated GFR (MDRD) > 60 BUN/Creatinine Ratio 14.3 (No establ ref range) Glucose 90 (74-99) mg/dL Lactic Acid (0.4-2.0) mmol/L Calcium 9.2 (8.5-10.1) mg/dL Total Bilirubin 0.2 (0.2-1.0) mg/dL AST 8 L (15-37) U/L ALT 21 (14-59) U/L Alkaline Phosphatase 80 (46-116) U/L Total Protein 8.3 H (6.4-8.2) g/dL Albumin 4.3 (3.4-5.0) g/dL Globulin 4.0 Albumin/Globulin Ratio 1.1 Amylase 60 (25-115) U/L Lipase 97 (73-393) U/L Urine Color (YELLOW) Urine Appearance (CLEAR) Urine pH (5.0-9.0) Ur Specific [place] (1.005-1.030) Urine Protein (NEGATIVE) Urine Glucose (UA) (NEGATIVE) Urine Ketones (NEGATIVE) Urine Occult Blood (NEGATIVE) Urine Nitrite (NEGATIVE) Urine Bilirubin (NEGATIVE) Urine Urobilinogen (0.2-1.0) mg/dL Ur Leukocyte Esterase (NEGATIVE) Urine RBC /HPF Urine WBC (0-5/HPF) /HPF Ur Epithelial Cells (NOT SEEN) /HPF Amorphous Sediment (NOT SEEN) /HPF Urine Bacteria (0-FEW/HPF) /HPF Urine Mucus (NOT SEEN) /LPF Urine HCG, Qual Urine Opiates Screen (NEGATIVE) Ur Oxycodone Screen (NEGATIVE) Urine Methadone Screen (NEGATIVE) Ur Barbiturates Screen (NEGATIVE) U Tricyclic Antidepress (NEGATIVE) Ur Phencyclidine Scrn (NEGATIVE) Ur Amphetamine Screen (NEGATIVE) U Methamphetamines Scrn (NEGATIVE) Urine MDMA Screen (NEGATIVE) U Benzodiazepines Scrn (NEGATIVE) Urine Cocaine Screen (NEGATIVE) U Marijuana (THC) Screen (NEGATIVE) SARS CoV-2 RNA Rapid TONY Negative (NEGATIVE) 06/04/20 06/04/20 06/04/20 Range/Units 19:54 20:43 20:43 WBC (5.0-10.0) 10^3/uL RBC (4.2-5.4) 10^6/uL Hgb (12.0-16.0) g/dL Hct (37.0-47.0) % MCV (80-100) fL MCH (27.0-34.0) pg MCHC (33.0-35.0) g/dL Plt Count (150-450) 10^3/uL Neut % (Auto) (42.2-75.2) % Lymph % (Auto) (20.5-50.1) % Stanton % (Auto) (2-8) % Eos % (Auto) (1.0-3.0) % Baso % (Auto) (0.0-1.0) % Sodium (136-145) mmol/L Potassium (3.5-5.1) mmol/L Chloride (98-107) mmol/L Carbon Dioxide (21-32) mmol/L Anion Gap (7-13) mEq/L BUN (7-18) mg/dL Creatinine (0.55-1.02) mg/dL Est Cr Clr Drug Dosing mL/min Estimated GFR (MDRD) BUN/Creatinine Ratio (No establ ref range) Glucose (74-99) mg/dL Lactic Acid 1.3 (0.4-2.0) mmol/L Calcium (8.5-10.1) mg/dL Total Bilirubin (0.2-1.0) mg/dL AST (15-37) U/L ALT (14-59) U/L Alkaline Phosphatase (46-116) U/L Total Protein (6.4-8.2) g/dL Albumin (3.4-5.0) g/dL Globulin Albumin/Globulin Ratio Amylase (25-115) U/L Lipase (73-393) U/L Urine Color Yellow (YELLOW) Urine Appearance Clear (CLEAR) Urine pH 5.5 (5.0-9.0) Ur Specific [place] 1.025 (1.005-1.030) Urine Protein Negative (NEGATIVE) Urine Glucose (UA) Negative (NEGATIVE) Urine Ketones Negative (NEGATIVE) Urine Occult Blood Small H (NEGATIVE) Urine Nitrite Negative (NEGATIVE) Urine Bilirubin Negative (NEGATIVE) Urine Urobilinogen 0.2 (0.2-1.0) mg/dL Ur Leukocyte Esterase Negative (NEGATIVE) Urine RBC 5-10 H /HPF Urine WBC 0-5 (0-5/HPF) /HPF Ur Epithelial Cells Rare (NOT SEEN) /HPF Amorphous Sediment Few (NOT SEEN) /HPF Urine Bacteria Rare (0-FEW/HPF) /HPF Urine Mucus Few H (NOT SEEN) /LPF Urine HCG, Qual Negative Urine Opiates Screen (NEGATIVE) Ur Oxycodone Screen (NEGATIVE) Urine Methadone Screen (NEGATIVE) Ur Barbiturates Screen (NEGATIVE) U Tricyclic Antidepress (NEGATIVE) Ur Phencyclidine Scrn (NEGATIVE) Ur Amphetamine Screen (NEGATIVE) U Methamphetamines Scrn (NEGATIVE) Urine MDMA Screen (NEGATIVE) U Benzodiazepines Scrn (NEGATIVE) Urine Cocaine Screen (NEGATIVE) U Marijuana (THC) Screen (NEGATIVE) SARS CoV-2 RNA Rapid TONY (NEGATIVE) 06/04/20 Range/Units 20:43 WBC (5.0-10.0) 10^3/uL RBC (4.2-5.4) 10^6/uL Hgb (12.0-16.0) g/dL Hct (37.0-47.0) % MCV (80-100) fL MCH (27.0-34.0) pg MCHC (33.0-35.0) g/dL Plt Count (150-450) 10^3/uL Neut % (Auto) (42.2-75.2) % Lymph % (Auto) (20.5-50.1) % Stanton % (Auto) (2-8) % Eos % (Auto) (1.0-3.0) % Baso % (Auto) (0.0-1.0) % Sodium (136-145) mmol/L Potassium (3.5-5.1) mmol/L Chloride (98-107) mmol/L Carbon Dioxide (21-32) mmol/L Anion Gap (7-13) mEq/L BUN (7-18) mg/dL Creatinine (0.55-1.02) mg/dL Est Cr Clr Drug Dosing mL/min Estimated GFR (MDRD) BUN/Creatinine Ratio (No establ ref range) Glucose (74-99) mg/dL Lactic Acid (0.4-2.0) mmol/L Calcium (8.5-10.1) mg/dL Total Bilirubin (0.2-1.0) mg/dL AST (15-37) U/L ALT (14-59) U/L Alkaline Phosphatase (46-116) U/L Total Protein (6.4-8.2) g/dL Albumin (3.4-5.0) g/dL Globulin Albumin/Globulin Ratio Amylase (25-115) U/L Lipase (73-393) U/L Urine Color (YELLOW) Urine Appearance (CLEAR) Urine pH (5.0-9.0) Ur Specific [place] (1.005-1.030) Urine Protein (NEGATIVE) Urine Glucose (UA) (NEGATIVE) Urine Ketones (NEGATIVE) Urine Occult Blood (NEGATIVE) Urine Nitrite (NEGATIVE) Urine Bilirubin (NEGATIVE) Urine Urobilinogen (0.2-1.0) mg/dL Ur Leukocyte Esterase (NEGATIVE) Urine RBC /HPF Urine WBC (0-5/HPF) /HPF Ur Epithelial Cells (NOT SEEN) /HPF Amorphous Sediment (NOT SEEN) /HPF Urine Bacteria (0-FEW/HPF) /HPF Urine Mucus (NOT SEEN) /LPF Urine HCG, Qual Urine Opiates Screen Negative (NEGATIVE) Ur Oxycodone Screen Positive H (NEGATIVE) Urine Methadone Screen Negative (NEGATIVE) Ur Barbiturates Screen Negative (NEGATIVE) U Tricyclic Antidepress Negative (NEGATIVE) Ur Phencyclidine Scrn Negative (NEGATIVE) Ur Amphetamine Screen Negative (NEGATIVE) U Methamphetamines Scrn Negative (NEGATIVE) Urine MDMA Screen Negative (NEGATIVE) U Benzodiazepines Scrn Negative (NEGATIVE) Urine Cocaine Screen Negative (NEGATIVE) U Marijuana (THC) Screen Positive H (NEGATIVE) SARS CoV-2 RNA Rapid TONY (NEGATIVE) Meds: Medications Discontinued Medications Generic Name Dose Route Start Last Admin Trade Name Freq PRN Reason Stop Dose Admin Acetaminophen 650 mg 06/04/20 19:59 06/04/20 20:05 Tylenol PO 06/04/20 20:00 650 mg NOW ONE Administration Acetaminophen Confirm 06/04/20 19:59 06/04/20 20:07 Tylenol Administered 06/04/20 20:00 Not Given Dose 650 mg .ROUTE .STK-MED ONE Sodium Chloride 1,000 mls @ 999 mls/hr 06/04/20 19:59 06/04/20 20:06 Normal Saline IV 06/04/20 20:59 999 mls/hr .BOLUS ONE Administration Sodium Chloride Confirm 06/04/20 19:59 06/04/20 20:07 Normal Saline Administered 06/04/20 20:00 Not Given Dose 1,000 mls @ as directed .ROUTE .STK-MED ONE Ondansetron HCl 4 mg 06/04/20 19:59 06/04/20 20:06 Zofran IVPUSH 06/04/20 20:00 4 mg ONETIME ONE Administration Ondansetron HCl Confirm 06/04/20 19:59 06/04/20 20:07 Zofran Administered 06/04/20 20:00 Not Given Dose 4 mg .ROUTE .STK-MED ONE Departure - Departure Time of Disposition: 21:07 Disposition: Home, Self-Care 01 Condition: Good Clinical Impression: Gastroenteritis Cellulitis Qualifiers: Site of cellulitis: extremity Site of cellulitis of extremity: lower extremity Laterality: right Qualified Code(s): L03.115 - Cellulitis of right lower limb - Discharge Information *PRESCRIPTION DRUG MONITORING PROGRAM REVIEWED*: No *COPY OF PRESCRIPTION DRUG MONITORING REPORT IN PATIENT JAE: No Instructions: Cellulitis, Adult, Viral Gastroenteritis, Adult, [id number] Referrals: Jomar Garcia MD [Primary Care Provider] - Forms: ED Department Discharge Additional Instructions: alternate tylenol and ibuprofen every 4 hours as needed for headache or fever follow up if symptoms worsen clinic recheck leg wound next week light bland diet advance as tolerated small amounts liquid more frequently doxycycline 100mg one twice daily good handwashing Sepsis Event Note (ED) - Evaluation Sepsis Screening Result: No Definite Risk - Focused Exam Vital Signs: Vital Signs Temp Pulse Resp BP Pulse Ox 06/04/20 19:35 98 F 88 18 130/84 100 - My Orders Last 24 Hours: My Active Orders 06/04/20 19:42 CULTURE WOUND [RM] Stat 06/04/20 20:02 Isolation [COMM] Routine - Assessment/Plan Last 24 Hours: My Active Orders 06/04/20 19:42 CULTURE WOUND [RM] Stat 06/04/20 20:02 Isolation [COMM] Routine
[2020-06-04 20:31] LABS: CHLORIDE,CL 99 mmol/L (98-107); SODIUM,NA 137 mmol/L (136-145)
== END 2020-06-04 21:15 | disposition home or self-care (01) ==
LOC: DL.ED 19:24
DX: K52.9 Noninfective gastroenteritis and colitis, unspecified (principal); L03.115 Cellulitis of right lower limb; Z20.828 Contact with and (suspected) exposure to other viral communicable diseases
CPT/HCPCS: 36415; 80053; 80305; 81001; 81025; 82150; 83605; 83690; 85025; 87070; 87635; 87804; 96374; 99284; A9270; J2405; J7030; 99283; U0002

== ENCOUNTER 2020-12-15 16:12 | Emergency (ER) | payer MEDICAID ==
[2020-12-15 16:23] VITALS: BP 141/95; PULSE 88
[2020-12-15] MEDS ORDERED: Ondansetron 4 MG/2 ML SDV IV ONE (16:34)
[2020-12-15] MEDS ORDERED: Sodium Chloride 0.9% 1,000 ML IV ONE (16:34)
[2020-12-15] MEDS ORDERED: HYDROmorphone 0.5 MG/0.5 ML Syringe IVPUSH ONE (16:35)
[2020-12-15] MEDS ORDERED: Sodium Chloride 0.9% 10 ML Syringe FLUSH PRN (16:35)
[2020-12-15 17:13] LABS: ANION GAP 12.2 mEq/L (7-13); CHLORIDE,CL 100 mmol/L (98-107); SODIUM,NA 135 mmol/L (136-145)
[2020-12-15] MEDS ORDERED: Penicillin G Benzathine/Procaine 600-600 1.2 Millunits/2 ML Syringe IM ONE (17:23)
[2020-12-15] MEDS ORDERED: methylPREDNISolone Sodium Succinate 125 MG/2 ML SDV IVPUSH ONE (17:24)
--- NOTE | 2020-12-15 17:32 | EDM.PDOC ---
Scribed by Clair Irby 12/15/20 1732 for Surinder Gamble MD ED HPI GENERAL MEDICAL PROBLEM - General Chief Complaint: Abdominal Pain Stated Complaint: AMBULANCE Time Seen by Provider: 12/15/20 16:19 Source of Information: Reports: Patient, EMS, EMS Notes Reviewed, RN, RN Notes Reviewed History Limitations: Reports: No Limitations - History of Present Illness INITIAL COMMENTS - FREE TEXT/NARRATIVE: Patient presents to ED by [facility] with complaints of upper abdominal pain, nausea, vomiting, diarrhea and sore throat that started yester day. Patient complains of severe epigastric pain, unable to keep down any fluid or liquids. Denies radiating pain or dysuria. Does have an IUD. Onset Date: 12/14/20 Duration: Constant Location: Reports: Abdomen Quality: Reports: Ache Severity: Severe Improves with: Reports: None Worsens with: Reports: None Associated Symptoms: Reports: No Other Symptoms Epigastric Pain Score (Numeric/FACES): 5 - Related Data Allergies Allergy/AdvReac Type Severity Reaction Status Date / Time No Known Allergies Allergy Verified 05/24/20 19:06 Home Meds: Home Meds . 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 Neurological History: Reports: None Psychiatric History: Reports: Depression, Suicidal Ideation Other Psychiatric History: denies this visit, noted cutting alvarado Endocrine/Metabolic History: Reports: None Hematologic History: Reports: Anemia Immunologic History: Reports: None Oncologic (Cancer) History: Reports: None Dermatologic History: Reports: Cellulitis - Infectious Disease History Infectious Disease History: Reports: Other (See Below) Other Infectious Disease History: covid 03/19/20 - Past Surgical History Head Surgeries/Procedures: Reports: None Social & Family History - Family History Family Medical History: No Pertinent Family History HEENT: Reports: None Cardiac: Reports: None Respiratory: Reports: None GI: Reports: None : Reports: None OBGYN: Reports: None Musculoskeletal: Reports: None Neurological: Reports: None Psychiatric: Reports: None Endocrine/Metabolic: Reports: None Hematologic: Reports: None Immunologic: Reports: None Dermatologic: Reports: None Oncologic: Reports: None - Caffeine Use Caffeine Use: Reports: Energy Drinks, Soda ED ROS GENERAL - Review of Systems Review Of Systems: Comprehensive ROS is negative, except as noted in HPI. ED EXAM, GI/ABD - Physical Exam Exam: See Below Exam Limited By: No Limitations General Appearance: Alert, WD/WN, No Apparent Distress Eyes: Bilateral: Normal Appearance Ears: Normal External Exam, Normal Canal, Hearing Grossly Normal, Normal TMs Nose: Normal Inspection, Normal Mucosa, No Blood Throat/Mouth: Normal Lips, Normal Teeth, Normal Gums, Normal Voice, No Airway Compromise, Other (Pharyngeal erythema) Head: Atraumatic, Normocephalic Neck: Normal Inspection, Supple, Non-Tender, Full Range of Motion Respiratory/Chest: No Respiratory Distress, Lungs Clear, Normal Breath Sounds, No Accessory Muscle Use, Chest Non-Tender Cardiovascular: Normal Peripheral Pulses, Regular Rate, Rhythm, No Edema, No Gallop, No JVD, No Murmur, No Rub GI/Abdominal Exam: Normal Bowel Sounds, Soft, Non-Tender, No Organomegaly, No Distention, No Abnormal Bruit, No Mass, Pelvis Stable (Female) Exam: Deferred Rectal (Female) Exam: Deferred Back Exam: Normal Inspection, Full Range of Motion, NT Extremities: Normal Inspection, Normal Range of Motion, Non-Tender, Normal Capillary Refill, No Pedal Edema Neurological: Alert, Oriented, CN II-XII Intact, Normal Cognition, Normal Gait, Normal Reflexes, No Motor/Sensory Deficits Psychiatric: Normal Affect, Normal Mood Skin Exam: Warm, Dry, Intact, Normal Color, No Rash Course - Vital Signs Last Recorded V/S: Last Vital Signs Temp 98.5 F 12/15/20 16:13 Pulse 88 12/15/20 16:13 Resp 16 12/15/20 16:13 BP 141/95 H 12/15/20 16:13 Pulse Ox 99 12/15/20 16:13 - Orders/Labs/Meds Orders: Active Orders 24 hr Category Date Time Status Peripheral IV Care [RC] . DIRECTED Care 12/15/20 16:35 Active HCG QUALITATIVE,URINE [URCHEM] Stat Lab 12/15/20 16:34 Ordered UA RFX MIRANDA AND CULT IF INDIC [URIN] Stat Lab 12/15/20 16:34 Ordered Sodium Chloride 0.9% [Normal Saline] 1,000 ml Med 12/15/20 16:34 Active IV .BOLUS Sodium Chloride 0.9% [Saline Flush] Med 12/15/20 16:35 Active 10 ml FLUSH ASDIRECTED PRN Peripheral IV Insertion Adult [OM.PC] Stat Oth 12/15/20 16:34 Ordered Medication Orders Sodium Chloride (Normal Saline) 1,000 mls @ 999 mls/hr IV .BOLUS ONE Stop: 12/15/20 17:34 Last Admin: 12/15/20 16:47 Dose: 999 mls/hr Documented by: LOU Sodium Chloride (Sodium Chloride 0.9% 10 Ml Syringe) 10 ml FLUSH ASDIRECTED PRN PRN Reason: Keep Vein Open Last Admin: 12/15/20 16:48 Dose: 10 ml Documented by: LOU Labs: Laboratory Tests 12/15/20 12/15/20 Range/Units 16:46 16:46 WBC 10.3 H (5.0-10.0) 10^3/uL RBC 4.37 (4.2-5.4) 10^6/uL Hgb 12.4 (12.0-16.0) g/dL Hct 38.1 (37.0-47.0) % MCV 87.2 (80-100) fL MCH 28.4 (27.0-34.0) pg MCHC 32.5 L (33.0-35.0) g/dL Plt Count 285 (150-450) 10^3/uL Neut % (Auto) 87.8 H (42.2-75.2) % Lymph % (Auto) 8.4 L (20.5-50.1) % Williams % (Auto) 3.5 (2-8) % Eos % (Auto) 0.1 L (1.0-3.0) % Baso % (Auto) 0.2 (0.0-1.0) % Sodium 135 L (136-145) mmol/L Potassium 4.2 (3.5-5.1) mmol/L Chloride 100 (98-107) mmol/L Carbon Dioxide 27 (21-32) mmol/L Anion Gap 12.2 (7-13) mEq/L BUN 9 (7-18) mg/dL Creatinine 0.53 L (0.55-1.02) mg/dL Est Cr Clr Drug Dosing 154.54 mL/min Estimated GFR (MDRD) > 60 BUN/Creatinine Ratio 17.0 (No establ ref range) Glucose 120 H (70-99) mg/dL Calcium 8.1 L (8.5-10.1) mg/dL Total Bilirubin 0.2 (0.2-1.0) mg/dL AST 7 L (15-37) U/L ALT 35 (14-59) U/L Alkaline Phosphatase 79 (46-116) U/L Total Protein 7.1 (6.4-8.2) g/dL Albumin 3.7 (3.4-5.0) g/dL Globulin 3.4 Albumin/Globulin Ratio 1.1 Amylase 37 (25-115) U/L Lipase 57 L (73-393) U/L Rapid strep: Positive. Meds: Medications Generic Name Dose Route Start Last Admin Trade Name Freq PRN Reason Stop Dose Admin Sodium Chloride 1,000 mls @ 999 mls/hr 12/15/20 16:34 12/15/20 16:47 Normal Saline IV 12/15/20 17:34 999 mls/hr .BOLUS ONE Administration Sodium Chloride 10 ml 12/15/20 16:35 12/15/20 16:48 Sodium Chloride 0.9% 10 Ml Syringe FLUSH 10 ml ASDIRECTED PRN Administration Keep Vein Open Discontinued Medications Generic Name Dose Route Start Last Admin Trade Name Freq PRN Reason Stop Dose Admin Hydromorphone HCl 0.5 mg 12/15/20 16:35 12/15/20 16:48 Hydromorphone 0.5 Mg/0.5 Ml Syringe IVPUSH 12/15/20 16:36 0.5 mg ONETIME ONE Administration Methylprednisolone Sodium Succinate 125 mg 12/15/20 17:24 Methylprednisolone Sodium Succinate 125 Mg/2 Ml Sdv IVPUSH 12/15/20 17:25 ONETIME ONE Ondansetron HCl 4 mg 12/15/20 16:34 12/15/20 16:47 Ondansetron 4 Mg/2 Ml Sdv IV 12/15/20 16:35 4 mg ONETIME ONE Administration Penicillin G Procaine/Benzathine 1.2 millunits 12/15/20 17:23 Penicillin G Benzathine/Procaine 600-600 1.2 Millunits/2 Ml Syringe IM 12/15/20 17:24 ONETIME ONE Departure - Departure Time of Disposition: 17:30 Disposition: Home, Self-Care 01 Condition: Good Clinical Impression: Strep pharyngitis Diarrhea Qualifiers: Diarrhea type: presumed infectious Qualified Code(s): R19.7 - Diarrhea, unspecified Vomiting Qualifiers: Vomiting type: unspecified Vomiting Intractability: non-intractable Nausea presence: with nausea Qualified Code(s): R11.2 - Nausea with vomiting, unspecified - Discharge Information *PRESCRIPTION DRUG MONITORING PROGRAM REVIEWED*: Not Applicable *COPY OF PRESCRIPTION DRUG MONITORING REPORT IN PATIENT JAE: Not Applicable Instructions: Strep Throat, Adult, [id number], Nausea and Vomiting, Adult, [id number], Diarrhea, Adult Forms: ED Department Discharge Additional Instructions: Rx: Zithromax 500mg Rx: Zofran 4mg Clear liquid diet until nausea and vomiting resolve, then advance to soft bland diet. Follow up in clinic if not improved in 3 days. Sepsis Event Note (ED) - Focused Exam Vital Signs: Vital Signs Temp Pulse Resp BP Pulse Ox 12/15/20 16:13 98.5 F 88 16 141/95 H 99 - My Orders Last 24 Hours: My Active Orders 12/15/20 16:34 HCG QUALITATIVE,URINE [URCHEM] Stat UA RFX MIRANDA AND CULT IF INDIC [URIN] Stat Sodium Chloride 0.9% [Normal Saline] 1,000 ml IV .BOLUS Peripheral IV Insertion Adult [OM.PC] Stat 12/15/20 16:35 Peripheral IV Care [RC] . DIRECTED Sodium Chloride 0.9% [Saline Flush] 10 ml FLUSH ASDIRECTED PRN - Assessment/Plan Last 24 Hours: My Active Orders 12/15/20 16:34 HCG QUALITATIVE,URINE [URCHEM] Stat UA RFX MIRANDA AND CULT IF INDIC [URIN] Stat Sodium Chloride 0.9% [Normal Saline] 1,000 ml IV .BOLUS Peripheral IV Insertion Adult [OM.PC] Stat 12/15/20 16:35 Peripheral IV Care [RC] . DIRECTED Sodium Chloride 0.9% [Saline Flush] 10 ml FLUSH ASDIRECTED PRN I have read and agree with the documentation that has been completed regarding this visit. By signing this record, I attest that the documentation was completed in my physical presence and is an accurate record of the encounter.
== END 2020-12-15 18:20 | disposition home or self-care (01) ==
LOC: DL.ED 16:12
DX: R11.2 Nausea with vomiting, unspecified (principal); R19.7 Diarrhea, unspecified; J02.0 Streptococcal pharyngitis
CPT/HCPCS: 36415; 80053; 81003; 81025; 82150; 83690; 85025; 87430; 96361; 96372; 96374; 96375; 99283; 99284-25; J0558; J1170; J2405; J2930; J7030

== ENCOUNTER 2022-05-20 00:20 | Inpatient (IN) | payer MEDICAID ==
[2022-06-14 14:26] LABS: AMPHETAMINES,URINE NEGATIVE (NEGATIVE); BARBITURATES,URINE NEGATIVE (NEGATIVE); BENZODIAZEPINE,URINE NEGATIVE (NEGATIVE); MDMA (ECSTASY), URINE NEGATIVE (NEGATIVE); METHADONE,URINE NEGATIVE (NEGATIVE); METHAMPHETAMINES,URINE NEGATIVE (NEGATIVE); OPIATES,URINE NEGATIVE (NEGATIVE); OXYCODONE,URINE NEGATIVE (NEGATIVE); PHENCYCLIDINE,URINE NEGATIVE (NEGATIVE); TCA,URINE NEGATIVE (NEGATIVE)
== END 2022-05-21 19:00 | disposition home or self-care (01) | DRG 807 ==
LOC: DL.OBCHECK 00:20 → DL.ZCENSUS 00:36 → DL.OBCHECK 08:00 → OBSVTOIN 19:50
PROC: 10E0XZZ Delivery of Products of Conception, External Approach (ICD-10-PCS; principal; 2022-05-20)
PROC: 10907ZC Drainage of Amniotic Fluid, Therapeutic from Products of Conception, Via Natural or Artificial Opening (ICD-10-PCS; 2022-05-20)
PROC: 3E0P7VZ Introduction of Hormone into Female Reproductive, Via Natural or Artificial Opening (ICD-10-PCS; 2022-05-20)
PROC: 3E0R3BZ Introduction of Anesthetic Agent into Spinal Canal, Percutaneous Approach (ICD-10-PCS; 2022-05-20)
DX: O99.824 Streptococcus B carrier state complicating childbirth (principal); Z37.0 Single live birth; Z3A.40 40 weeks gestation of pregnancy; O48.0 Post-term pregnancy; Z87.891 Personal history of nicotine dependence
CPT/HCPCS: 36415; 80305-QW; 85025; 85027; U0002

== ENCOUNTER 2023-08-14 17:05 | Emergency (ER) | payer MEDICAID ==
[2023-08-14 17:59] VITALS: BP 159/99; PULSE 73
[2023-08-14 19:07] LABS: CORONAVIRUS COVID-19 NAA NEGATIVE (NEGATIVE); INFLUENZA A NAA NEGATIVE (NEGATIVE); INFLUENZA B NAA NEGATIVE (NEGATIVE)
== END 2023-08-14 19:48 | disposition home or self-care (01) ==
LOC: DL.ED 17:05
DX: J06.9 Acute upper respiratory infection, unspecified (principal); Z20.822 Contact with and (suspected) exposure to COVID-19; Z86.16 Personal history of COVID-19
CPT/HCPCS: 0240U; 99283

== ENCOUNTER 2023-09-18 18:23 | Emergency (ER) | payer MEDICAID ==
[2023-09-18 18:46] VITALS: BP 147/89; PULSE 69
[2023-09-18] MEDS: Ondansetron 4 MG Tab.DIS PO ONE (18:52)
[2023-09-18 19:02] LABS: BASOPHILS PERCENT AUTO 0.2 % (0.0-1.0); EOSINOPHILS PERCENT AUTO 1.9 % (1.0-3.0); HEMATOCRIT 36.2 % (37.0-47.0); HEMOGLOBIN 11.7 g/dL (12.0-16.0); MEAN CORPUSCULAR HEMOGLOBIN 28.8 pg (27.0-34.0); MEAN CORPUSCULAR HGB CONC 32.3 g/dL (33.0-35.0); MEAN CORPUSCULAR VOLUME 89.2 fL (80-100); MONOCYTES PERCENT AUTO 6.5 % (2-8); NEUTROPHILS PERCENT AUTO 45.4 % (42.2-75.2); PLATELET COUNT,PLT 253 10^3/uL (150-450); RED BLOOD CELL COUNT 4.06 10^6/uL (4.2-5.4); WHITE BLOOD CELL COUNT,WBC 5.4 10^3/uL (5.0-10.0)
[2023-09-18 19:19] LABS: ALBUMIN 3.5 g/dL (3.4-5.0); ANION GAP 9.5 mEq/L (7-13); BILIRUBIN TOTAL 0.3 mg/dL (0.2-1.0); BUN/CREATININE RATIO 13.6 (No establ ref range); CALCIUM 8.6 mg/dL (8.5-10.1); CREATININE 0.66 mg/dL (0.55-1.02); EST CRCL DRUG DOSING (CG) 120.92 mL/min; POTASSIUM,K 4.5 mmol/L (3.5-5.1); PROTEIN TOTAL,TP 7.1 g/dL (6.4-8.2)
[2023-09-18 19:29] LABS: CORONAVIRUS COVID-19 NAA NEGATIVE (NEGATIVE); INFLUENZA A NAA NEGATIVE (NEGATIVE); INFLUENZA B NAA NEGATIVE (NEGATIVE); RESPIRATORY SYNCYTIAL VIR NAA NEGATIVE (NEGATIVE)
== END 2023-09-18 19:53 | disposition home or self-care (01) ==
LOC: DL.ED 18:23
DX: R11.2 Nausea with vomiting, unspecified (principal); F17.210 Nicotine dependence, cigarettes, uncomplicated; I10 Essential (primary) hypertension; E66.9 Obesity, unspecified; Z86.16 Personal history of COVID-19; Z79.899 Other long term (current) drug therapy
CPT/HCPCS: 0241U; 36415; 80053; 85025; 99283; 99284; A9270-GY

== ENCOUNTER 2023-11-26 15:53 | Emergency (ER) | payer MEDICAID ==
[2023-11-26 16:08] VITALS: BP 132/80; PULSE 72
[2023-11-26] MEDS: Take Home: Amoxicillin 500 MG, 6 Cap Pack PO ONE (16:45)
== END 2023-11-26 16:47 | disposition home or self-care (01) ==
LOC: DL.ED 15:53
DX: J32.9 Chronic sinusitis, unspecified (principal); I88.9 Nonspecific lymphadenitis, unspecified; I10 Essential (primary) hypertension; E66.9 Obesity, unspecified; Z86.16 Personal history of COVID-19; Z79.899 Other long term (current) drug therapy
CPT/HCPCS: 99283; A9270

== ENCOUNTER 2025-06-15 20:41 | Emergency (ER) | payer MEDICAID ==
[2025-06-15 21:35] VITALS: BP 134/75; PULSE 102
== END 2025-06-15 21:30 | disposition home or self-care (01) ==
LOC: DL.ED 20:41
DX: S93.402A Sprain of unspecified ligament of left ankle, initial encounter (principal); I10 Essential (primary) hypertension; E66.9 Obesity, unspecified; Z86.16 Personal history of COVID-19; Z79.899 Other long term (current) drug therapy; W18.40XA Slipping, tripping and stumbling without falling, unspecified, initial encounter; X50.1XXA Overexertion from prolonged static or awkward postures, initial encounter
CPT/HCPCS: 73610-LT; 99283

== ENCOUNTER 2025-07-14 17:30 | Emergency (ER) | payer MEDICAID ==
[2025-07-14] MEDS: Fluorescein 1 MG Ophth Strip EYELF ONE (17:51)
[2025-07-14 18:06] VITALS: BP 122/71; PULSE 78
== END 2025-07-14 18:05 | disposition home or self-care (01) ==
LOC: DL.ED 17:30
DX: H57.89 Other specified disorders of eye and adnexa (principal); I10 Essential (primary) hypertension; E66.9 Obesity, unspecified; Z86.16 Personal history of COVID-19; Z79.899 Other long term (current) drug therapy
CPT/HCPCS: 99282; 99283; J3490